=== PATIENT | female | born 1990 | race Caucasian/White ===

== ENCOUNTER 2016-04-29 09:34 | Day surgery (SDC) | payer MEDICAID ==
[2016-04-28 11:27] VITALS: BMI 19.0
[2016-04-29] VITALS (15 sets, daily range): BP systolic 90–106; BP diastolic 50–76; PULSE 68–97; RESP 10–19; Ht 175.3 cm; Wt 72.7 kg
[~2016-04-29] VITALS: Ht 175.3 cm; Wt 72.7 kg
[~2016-04-29 09:34] MED LIST: PEPTO BISMOL; SOD CHLORIDE 0.9% 1,000 ML IV ONE
[2016-04-29] MEDS ORDERED: CEFAZOLIN 2 GM/50 ML (PMX) 50 ML IVPB ONE (11:30)
[2016-04-29] MEDS ORDERED: CEFAZOLIN 1 GM INJ ONE (11:36)
[2016-04-29] MEDS ORDERED: MIDAZOLAM 1 MG/ML 2 ML INJ ONE (11:36)
[2016-04-29] MEDS ORDERED: PROPOFOL 20 ML ONE (11:36)
[2016-04-29] MEDS ORDERED: FENTAnyl 50 MCG/ML VIAL ONE ×2 (11:36→12:53)
[2016-04-29] MEDS ORDERED: ONDANSETRON 4 MG INJ ONE (13:12)
[2016-04-29] MEDS ORDERED: METOCLOPRAMIDE 10 MG INJ ONE (13:12)
[2016-04-29] MEDS ORDERED: DEXAMETHASONE 4 MG/ML 1 ML INJ ONE (13:13)
[2016-04-29] MEDS ORDERED: KETOROLAC 30 MG INJ ONE (13:13)
[2016-04-29] MEDS ORDERED: ONDANSETRON 4 MG INJ IV PRN (13:30)
[2016-04-29] MEDS ORDERED: morphine (1 MG/ML) 10ML SYRINGE IV PRN ×2 (13:30)
[2016-04-29] MEDS ORDERED: MEPERIDINE 25 MG INJ IV PRN (13:30)
[2016-04-29] MEDS ORDERED: HYDROmorphONE (0.2 MG/ML) 10ML SYG IV PRN (13:30)
[2016-04-29] MEDS ORDERED: DIPHENHYDRAMINE 50 MG INJ IV PRN (13:30)
--- NOTE | 2016-04-29 13:49 | OPR ---
DATE OF OPERATION: 04/29/2016 PREOPERATIVE DIAGNOSIS: Large right breast mass. POSTOPERATIVE DIAGNOSIS: Large right breast mass. OPERATION PERFORMED: Excision of large right breast mass. ANESTHESIA: General. 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 She was counseled as to risks versus benefits of excision. Sh e consented and was scheduled for surgery. DESCRIPTION OF PROCEDURE: The patient was brought to the operating theater, placed under general an esthesia. The right breast was prepped and draped in the usual sterile fashion. A periareolar inci savana was made from the 9 o'clock position through the 12 o'clock position to the 3 o'clock position. Subcutaneous tissue was dissected with cautery. Deep within the breast parenchyma, a large well c ircumscribed lobulated mass was identified. It was enucleated with a gloved finger, removed and sen t for permanent pathologic analysis. The wound was irrigated. Bleeding was controlled with cautery . The skin was then reapproximated with multiple 4-0 Vicryl sutures in deep dermal fashion, followe d by final skin approximation with 5-0 PDS sutures in subcuticular fashion. Benzoin and Steri-Strip s were then applied. Patient tolerated procedure well. The estimated blood loss was 20 mL. There were no complications and the patient was transported in stable condition to the recovery room. Dictated By: DES KLINE MD TL/NTS Conf#: [id number] DID#: [id number] CC: TODD NAVARRETE MD;*EndCC*
[2016-04-29] MEDS: HYDROmorphONE (0.2 MG/ML) 10ML SYG IV PRN ×2 (14:01→14:06)
== END 2016-04-29 15:31 | disposition home or self-care (01) ==
LOC: SDS 09:34
PROVIDERS: ATTEND Surgery Surgical Oncology
DX: D24.1 Benign neoplasm of right breast (principal)
CPT/HCPCS: 19120; 84703; 88307; J0690; J1100; J1170; J1885; J2250; J2405; J2765; J3010; Z7512; Z7610